=== PATIENT | male | born 1970 | race Caucasian/White ===

== ENCOUNTER → 2019-11-25 17:23 | Outpatient (CLI) | payer OTHER, SELFPAY ==
[2019-11-25 17:49] LABS: Chloride 105 mmol/L (98-107); Sodium 138 mmol/L (136-145)
[2019-11-25 17:50] LABS: Potassium 4.4 mmoL/L (3.5-5.1)
[2019-11-25 17:52] LABS: Blood Urea Nitrogen 24 mg/dl (9-20); Estimated Glomerular Filt Rate 65 ml/min (>60); GFR (African American) 78 ML/MIN (>60)
[2019-11-25 17:53] LABS: Anion Gap 15.4 mEq/L (5-15); Calcium 9.8 mg/dl (8.4-10.2); Carbon Dioxide 22 mmol/L (22.0-30.0); Glucose 273 mg/dl (74-100)
[2019-11-25 17:57] LABS: Hemoglobin A1C 7.9 % (4.0-6.0)
[2019-11-25 18:06] LABS: Uric Acid 8.4 mg/dl (3.5-8.5)
== END ==
PROVIDERS: Visit Provider Family Medicine
DX: E11.9 Type 2 diabetes mellitus without complications (principal); I10 Essential (primary) hypertension; Z79.84 Long term (current) use of oral hypoglycemic drugs
CPT/HCPCS: 80048; 83036; 84550

== ENCOUNTER → 2020-10-29 14:15 | Outpatient (CLI) | payer OTHER, SELFPAY ==
[2020-10-29 14:24] LABS: Basophils # 0.1 K/mm3 (0-0.2); Basophils % 0.8 % (0.1-2.0); Eosinophils # 0.5 K/mm3 (0.0-0.4); Eosinophils % 5.8 % (0.1-12.0); Hematocrit 42.1 % (42.0-52.0); Lymphocytes # 2.7 K/mm3 (0.7-4.5); Lymphocytes % 33.4 % (10-50); Mean Corpuscular HGB Conc 33.3 g/dL (31.8-35.4); Mean Corpuscular Hemoglobin 30.4 pg (27.0-31.2); Mean Corpuscular Volume 91.2 fl (80-94); Mean Platelet Volume 8.4 fl (7.4-10.4); Monocytes # 0.4 K/mm3 (0.1-1.0); Monocytes % 5.3 % (1.7-9.3); Neutrophils # 4.5 K/mm3 (1.8-7.8); Neutrophils % 54.7 % (37.0-80.0); Platelet Count 203 K/mm3 (142-424); Red Blood Count 4.62 M/mm3 (4.60-6.20); Red Cell Distribution Width 14.1 % (11.5-17.5); White Blood Count 8.2 K/mm3 (4.8-10.8)
[2020-10-29 14:57] LABS: Hemoglobin A1C 7.7 % (4.0-6.0)
[2020-10-29 15:19] LABS: Alanine Aminotransferase 65 U/L (12-78); Albumin Level 4.3 g/dl (3.5-5.0); Albumin/Globulin Ratio 1.3 (1.1-1.8); Alkaline Phosphatase 59 U/L (38-126); Anion Gap 13.6 mEq/L (5-15); Aspartate Amino Transferase 57 U/L (17-59); Bilirubin,Total 0.5 mg/dl (0.2-1.3); Blood Urea Nitrogen 20 mg/dl (9-20); Calcium 9.3 mg/dl (8.4-10.2); Carbon Dioxide 22 mmol/L (22.0-30.0); Chloride 110 mmol/L (98-107); Chol/HDL Ratio 5.4 (1-3.5); Cholesterol 185 mg/dl (140-200); Estimated Glomerular Filt Rate 64 ml/min (>60); GFR (African American) 78 ML/MIN (>60); Globulin 3.4 g/dL (1.3-3.2); Glucose 134 mg/dl (74-100); HDL Cholesterol 34 mg/dl (40-60); Potassium 4.6 mmoL/L (3.5-5.1); Sodium 141 mmol/L (136-145); Total Protein,Serum 7.7 g/dl (6.3-8.2); Triglycerides 389 mg/dl (30-150); VLDL Cholesterol 78 mg/dL (0-40)
[2020-10-29 15:32] LABS: Direct LDL Cholesterol 69.48 mg/dL (100-129)
[2020-10-29 15:36] LABS: T4 (Thyroxine) 5.8 ug/dl (5.53-11.0)
[2020-10-29 15:50] LABS: Thyroid Stimulating Hormone 1.04 uIU/mL (0.465-4.68)
[2020-10-29 16:27] LABS: Creatinine,Urine Random 137 mg/dL (Not Estab.)
[2020-10-29 20:24] LABS: Microalbumin/Creatinine Ratio 866.5
== END ==
PROVIDERS: Visit Provider Family Medicine
DX: E11.9 Type 2 diabetes mellitus without complications (principal); Z79.84 Long term (current) use of oral hypoglycemic drugs
CPT/HCPCS: 80053; 80061; 82043; 82570; 83036; 84436; 84443; 85025

== ENCOUNTER → 2020-11-15 10:02 | Outpatient (CLI) | payer OTHER, SELFPAY | PROVIDERS: PCP Family Medicine; Visit Provider Family Medicine | DX: Z20.822 Contact with and (suspected) exposure to COVID-19 (principal) | CPT/HCPCS: U0003 ==

== ENCOUNTER → 2020-11-16 13:48 | Outpatient (CLI) | payer OTHER, SELFPAY ==
--- NOTE | 2020-11-16 13:49 | CT_ITS ---
PROCEDURE: CT ABDOMEN PELVIS WO CON CLINICAL INDICATION: r/o kidney stone COMPARISON: No exams were available for comparison TECHNIQUE: Axial images obtained with sagittal and coronal reformats. All CT scans at the facility use one or more dose reduction, viz: automated exposure control, ma/kV adjustment per patient size (including targeted exams where dose is matched to indication, i.e. head), or iterative reconstruction technique. FINDINGS: LOWER THORAX: Calcified granulomas present in the left lower lobe laterally. There is a 3 mm nodule in the left upper lobe posteriorly which may also be due to a granuloma. ABDOMEN & PELVIS: The liver, gallbladder, adrenal glands, and pancreas have an unremarkable unenhanced appearance. There is borderline splenomegaly at 13 cm. A 10 mm stone is present in the lower pole of the left kidney. 2 mm stone mid polar region left kidney. 2 mm stone lower pole right kidney. No hydronephrosis. No ureteral calculus. No intestinal obstruction or free air. No evidence of appendicitis. Bowel gas pattern is nonspecific. There is colonic diverticulosis but no evidence of diverticulitis. Postsurgical changes are present with a suture line in the sigmoid colon region. No pelvic mass or abnormal fluid collection. There is a small ventral abdominal wall hernia just to the left of midline containing fat 6 cm cephalad to the umbilicus. Small right para ventral hernia also containing fat just inferior to this region. A slightly larger ventral abdominal wall hernia slightly eccentric to the left is present 3 cm cephalad to the umbilicus. There is a small umbilical hernia containing fat. These hernias do not contain bowel. There are degenerative changes in the thoracolumbar junction with mild wedging of T11 which appears old with a Schmorl's node along the superior endplate. IMPRESSION: 1. Bilateral nephrolithiasis. No ureteral calculi evident. 2. Colonic diverticulosis without diverticulitis. 3. Abdominal wall hernias as described above containing fat Dictated by: Blake Gonzalez MD 11/16/2020 15:44 Blake Gonzalez MD in [facility] 11/16/2020 15:44
== END ==
PROVIDERS: PCP Family Medicine; Visit Provider Family Medicine
DX: R31.0 Gross hematuria (principal); N20.0 Calculus of kidney
CPT/HCPCS: 74176

== ENCOUNTER → 2021-02-08 20:01 | Outpatient (CLI) | payer OTHER, SELFPAY ==
[2021-02-08 21:15] LABS: Hemoglobin A1C 7.4 % (4.0-6.0)
== END ==
PROVIDERS: Visit Provider Family Medicine
DX: E11.9 Type 2 diabetes mellitus without complications (principal); I10 Essential (primary) hypertension; R31.9 Hematuria, unspecified; N20.0 Calculus of kidney; Z79.84 Long term (current) use of oral hypoglycemic drugs
CPT/HCPCS: 83036

== ENCOUNTER → 2021-07-04 08:14 | Outpatient (CLI) | payer OTHER, SELFPAY ==
[2021-07-04 14:18] LABS: Anion Gap 12.3 mEq/L (5-15); Blood Urea Nitrogen 15 mg/dl (9-20); Carbon Dioxide 25 mmol/L (22.0-30.0); Chloride 106 mmol/L (98-107); Chol/HDL Ratio 6.1 (1-3.5); Cholesterol 170 mg/dl (140-200); Estimated Glomerular Filt Rate 79 ml/min (>60); GFR (African American) 96 ML/MIN (>60); Glucose 216 mg/dl (74-100); HDL Cholesterol 28 mg/dl (40-60); Potassium 4.3 mmoL/L (3.5-5.1); Sodium 139 mmol/L (136-145); Triglycerides 364 mg/dl (30-150); VLDL Cholesterol 73 mg/dL (0-40)
[2021-07-04 14:29] LABS: Direct LDL Cholesterol 72.82 mg/dL (100-129)
[2021-07-04 14:34] LABS: Hemoglobin A1C 7.6 % (4.0-6.0)
== END ==
PROVIDERS: Visit Provider Family Medicine
DX: E11.9 Type 2 diabetes mellitus without complications (principal); I10 Essential (primary) hypertension; N20.0 Calculus of kidney; R31.9 Hematuria, unspecified; Z79.84 Long term (current) use of oral hypoglycemic drugs
CPT/HCPCS: 80048; 80061; 83036

== ENCOUNTER → 2023-01-30 23:36 | Outpatient (CLI) | payer OTHER, SELFPAY ==
[2023-01-30 19:38] LABS: Basophils % 0.5 % (0.1-2.0); Eosinophils # 0.3 K/mm3 (0.0-0.4); Eosinophils % 5.4 % (0.1-12.0); Hematocrit 45.8 % (42.0-52.0); Mean Corpuscular HGB Conc 34.9 g/dL (31.8-35.4); Mean Corpuscular Hemoglobin 32.3 pg (27.0-31.2); Mean Corpuscular Volume 92.5 fl (80-94); Mean Platelet Volume 9.6 fl (7.4-10.4); Monocytes # 0.4 K/mm3 (0.1-1.0); Monocytes % 6.3 % (1.7-9.3); Neutrophils # 3.3 K/mm3 (1.8-7.8); Neutrophils % 54.9 % (37.0-80.0); Platelet Count 143 K/mm3 (142-424); Red Blood Count 4.96 M/mm3 (4.60-6.20); Red Cell Distribution Width 13.6 % (11.5-17.5); White Blood Count 6.1 K/mm3 (4.8-10.8)
[2023-01-30 20:51] LABS: Chloride 111 mmol/L (98-107); Sodium 139 mmol/L (136-145)
[2023-01-30 20:52] LABS: Potassium 4.3 mmoL/L (3.5-5.1)
[2023-01-30 20:54] LABS: Alanine Aminotransferase 67 U/L (12-78); Albumin Level 4.3 g/dl (3.5-5.0); Albumin/Globulin Ratio 1.4 (1.1-1.8); Alkaline Phosphatase 94 U/L (38-126); Anion Gap 13.3 mEq/L (5-15); Aspartate Amino Transferase 51 U/L (17-59); Bilirubin,Total 0.3 mg/dl (0.2-1.3); Blood Urea Nitrogen 15 mg/dl (9-20); Carbon Dioxide 19 mmol/L (22.0-30.0); Cholesterol 197 mg/dl (140-200); Estimated Glomerular Filt Rate 79 ml/min (>60); GFR (African American) 95 ML/MIN (>60); Globulin 3.1 g/dL (1.3-3.2); Glucose 282 mg/dl (74-100); Total Protein,Serum 7.4 g/dl (6.3-8.2)
[2023-01-30 20:55] LABS: Calcium 9.2 mg/dl (8.4-10.2); Chol/HDL Ratio 7.3 (1-3.5); HDL Cholesterol 27 mg/dl (40-60)
[2023-01-30 21:07] LABS: Direct LDL Cholesterol 69.24 mg/dL (100-129); Triglycerides 631 mg/dl (30-150)
[2023-01-30 21:29] LABS: Thyroid Stimulating Hormone 1.06 uIU/mL (0.465-4.68)
[2023-01-30 23:13] LABS: Uric Acid 5.8 mg/dl (3.5-8.5)
[2023-01-30 23:45] LABS: Prostate Specific Ag Screen 0.3 ng/ml (0.0-4.0)
== END ==
PROVIDERS: Family Medicine; PCP Family Medicine; Visit Provider Family Medicine
DX: Z00.00 Encounter for general adult medical examination without abnormal findings (principal); M10.9 Gout, unspecified; E11.9 Type 2 diabetes mellitus without complications; Z79.84 Long term (current) use of oral hypoglycemic drugs; Z79.899 Other long term (current) drug therapy
CPT/HCPCS: 80053; 80061; 84443; 84550; 85025; G0103

== ENCOUNTER 2023-05-04 21:37 | Outpatient (CLI) | payer OTHER, SELFPAY ==
[2023-05-04 19:13] LABS: Alanine Aminotransferase 38 U/L (12-78); Albumin Level 4.3 g/dl (3.5-5.0); Albumin/Globulin Ratio 1.3 (1.1-1.8); Alkaline Phosphatase 79 U/L (38-126); Anion Gap 13.5 mEq/L (5-15); Aspartate Amino Transferase 45 U/L (17-59); Bilirubin,Total 0.5 mg/dl (0.2-1.3); Blood Urea Nitrogen 19 mg/dl (9-20); Calcium 9.3 mg/dl (8.4-10.2); Carbon Dioxide 21 mmol/L (22.0-30.0); Chloride 112 mmol/L (98-107); Chol/HDL Ratio 4.3 (1-3.5); Cholesterol 163 mg/dl (140-200); Estimated Glomerular Filt Rate 58 ml/min (>60); GFR (African American) 70 ML/MIN (>60); Globulin 3.2 g/dL (1.3-3.2); Glucose 163 mg/dl (74-100); HDL Cholesterol 38 mg/dl (40-60); Potassium 4.5 mmoL/L (3.5-5.1); Sodium 142 mmol/L (136-145); Total Protein,Serum 7.5 g/dl (6.3-8.2); Triglycerides 223 mg/dl (30-150); VLDL Cholesterol 45 mg/dL (0-40)
[2023-05-04 19:24] LABS: Direct LDL Cholesterol 85.43 mg/dL (100-129)
[2023-05-04 21:06] LABS: Hemoglobin A1C 5.9 % (4.0-6.0)
== END 2023-05-04 23:59 ==
LOC: LAB.DROPOF 21:38
PROVIDERS: PCP Family Medicine; Visit Provider Family Medicine
DX: E11.9 Type 2 diabetes mellitus without complications (principal); Z79.84 Long term (current) use of oral hypoglycemic drugs; Z79.899 Other long term (current) drug therapy
CPT/HCPCS: 80053; 80061; 83036

== ENCOUNTER 2024-04-16 07:02 | Outpatient (CLI) | payer OTHER, SELFPAY ==
[2024-04-15 18:39] LABS: Microalbumin/Creatinine Ratio 42.6
[2024-04-15 18:42] LABS: Alanine Aminotransferase 45 U/L (12-78); Albumin Level 4.7 g/dl (3.5-5.0); Albumin/Globulin Ratio 1.6 (1.1-1.8); Alkaline Phosphatase 47 U/L (38-126); Anion Gap 13.6 mEq/L (5-15); Aspartate Amino Transferase 47 U/L (17-59); Bilirubin,Total 0.6 mg/dl (0.2-1.3); Blood Urea Nitrogen 22 mg/dl (9-20); Calcium 9.8 mg/dl (8.4-10.2); Carbon Dioxide 26 mmol/L (22.0-30.0); Chloride 106 mmol/L (98-107); Estimated Glomerular Filt Rate 49 ml/min (>60); GFR (African American) 59 ML/MIN (>60); Globulin 2.9 g/dL (1.3-3.2); Glucose 79 mg/dl (74-100); Potassium 4.6 mmoL/L (3.5-5.1); Sodium 141 mmol/L (136-145); Total Protein,Serum 7.6 g/dl (6.3-8.2)
[2024-04-15 18:50] LABS: Creatinine,Urine Random 111 mg/dL (Not Estab.)
== END 2024-04-16 23:59 | disposition home or self-care (01) ==
LOC: LAB.DROPOF 07:03
PROVIDERS: PCP Family Medicine; Visit Provider Family Medicine
DX: E11.9 Type 2 diabetes mellitus without complications (principal); Z79.85 Long-term (current) use of injectable non-insulin antidiabetic drugs
CPT/HCPCS: 80053; 82043; 82570